=== PATIENT | female | born 1995 | race Caucasian/White ===

== ENCOUNTER 2018-06-09 19:26 | Emergency (ER) | payer OTHER ==
[~2018-06-09] VITALS: Ht 160 cm; Wt 53.5 kg
[2018-06-09] MEDS ORDERED: MONONESSA 28 T1 EACH (20:14)
[2018-06-10] MEDS ORDERED: KETO10TA2 PO (10:07)
[2018-06-10] MEDS ORDERED: BACTRIM DS TAB1 EACH PO (10:07)
== END 2018-06-10 02:56 | disposition home or self-care (01) ==
LOC: ER 19:26
DX: R10.2 Pelvic and perineal pain (principal); N39.0 Urinary tract infection, site not specified

== ENCOUNTER 2023-10-23 16:54 | Emergency (ER) | payer BC, OTHER ==
[~2023-10-23] VITALS: Ht 160 cm; Wt 54.4 kg
[~2023-10-23 16:54] MED LIST: BACTRIM DS TAB1 EACH PO; KETO10TA2 PO; MONONESSA 28 T1 EACH
[2023-10-23 18:15] LABS: HEMATOCRIT 41.8 % (36.0-45.00); HEMOGLOBIN 13.7 g/dL (12.0-15.00); MEAN CELL VOLUME 80.5 fL (80.00-100.00); MEAN CORPUSCULAR HEMOGLOBIN 26.5 pg (27.00-32.0); MEAN CORPUSCULAR HGB CONC 32.9 g/dl (32.0-36.0); PLATELET COUNT 349 K/uL (150-450); RED BLOOD COUNT 5.19 M/uL (4.00-6.00); RED CELL DISTRIBUTION WIDTH 13.4 % (11.5-14.5)
[2023-10-23 18:37] LABS: INR 0.98; PARTIAL THROMBOPLASTIN TIME 26.1 SECONDS (22.0-34.0); PROTHROMBIN TIME 10.3 SECONDS (9.0-11.5)
[2023-10-23 18:45] LABS: PH,URINE 6.5 (5.0-8.0); URINE APPEARANCE Clear; URINE BILIRRUBIN Negative (NEGATIVE); URINE BLOOD Negative; URINE COLOR Yellow; URINE GLUCOSE Negative (NEGATIVE); URINE LEUKOCYTE Negative; URINE NITRATE Negative; URINE PROTEIN Negative (NEGATIVE); URINE UROBILINOGEN 0.2 E.U./dl
[2023-10-23 18:46] LABS: URINE BACTERIA 26.4 uL (0.0-1933); URINE EPITHELIAL CELLS 14.2 uL (0.0-38.8); URINE RBC 4.8 uL (0.0-20.8)
[2023-10-23 18:52] LABS: ANION GAP 10 (10.0-20.0); BLOOD UREA NITROGEN 13 mg/dL (7-18); BUN CREA RATIO 18 (7.0-25.0); CALCIUM 9.4 mg/dL (8.5-10.1); CARBON DIOXIDE 22 mEq/L (21-32); CHLORIDE 109 mmol/L (98-107); CREATININE SERUM 0.73 mg/dL (0.55-1.02); GFR 94.25; GLUCOSE FASTING 113 mg/dL (65-100); OSMOLALITY SERUM 275 MOSM/KG (275-295); POTASSIUM 3.73 mEq/L (3.5-5.1); SODIUM 137 mmol/L (136-145)
[2023-10-23 19:15] LABS: URINE WBC 1.2 uL (0.0-23.2)
[2023-10-23 19:18] LABS: HCG QUANTITATIVE < 1 mUI/mL (1-3)
== END 2023-10-23 23:18 | disposition home or self-care (01) ==
LOC: ER 16:54
PROVIDERS: General Practice
DX: R00.2 Palpitations (principal); Z86.79 Personal history of other diseases of the circulatory system; Z88.2 Allergy status to sulfonamides; R10.2 Pelvic and perineal pain